=== PATIENT | female | born 1955 | race Two or more races ===

== ENCOUNTER 2020-11-06 15:42 | Emergency (ER) | payer MEDICAID, OTHER ==
[~2020-11-06] VITALS: Ht 157.5 cm; Wt 104.3 kg
[2020-11-06] MEDS ORDERED: DexAMETHasone SOD PHOS 10MG/1ML VIAL INJ IM ONE (17:15)
[2020-11-06] MEDS ORDERED: cefTRIAXone SOD 1,000 MG VL IM ONE (17:15)
[2020-11-06 18:05] VITALS: BP 102/61
== END 2020-11-06 18:06 | disposition home or self-care (01) ==
LOC: ER 15:42
DX: U07.1 COVID-19 (principal); J12.89 Other viral pneumonia; E11.9 Type 2 diabetes mellitus without complications; E78.5 Hyperlipidemia, unspecified; I10 Essential (primary) hypertension; Z90.49 Acquired absence of other specified parts of digestive tract; Z90.710 Acquired absence of both cervix and uterus
CPT/HCPCS: 71045; 96372; 99284; J0696; J1100